=== PATIENT | female | born 1975 | race African-American/Black ===

== ENCOUNTER 2017-09-02 15:43 | Emergency (ER) | payer SELFPAY, OTHER | END 2017-09-02 16:34 | disposition home or self-care (01) | LOC: ER 16:34 | DX: G62.9 Polyneuropathy, unspecified (principal); J40 Bronchitis, not specified as acute or chronic; F17.200 Nicotine dependence, unspecified, uncomplicated; F12.10 Cannabis abuse, uncomplicated; F14.10 Cocaine abuse, uncomplicated | CPT/HCPCS: 99283 ==